=== PATIENT | male | born 1975 | race Caucasian/White ===

== ENCOUNTER → 2019-11-20 | Outpatient (CLI) | payer OTHER ==
--- NOTE | 2019-11-20 13:08 | RAD ---
PROCEDURE: TIBIA FIBULA LEFT, RIGHT FEMUR XRAY STUDY DATE: 11/20/2019 CLINICAL INDICATION / HISTORY: Reason: COMPOUND FRACTURE LEFT TIBIA FIBULA. PAIN. HX OF FX RIGHT FEMUR. PAIN. / Spl. Instructions: / History: . TECHNIQUE: Right femur 2 views. COMPARISON: None FINDINGS: The bone density appears normal. Residual deformity in the distal right femur with apex dorsal angulation at the old fracture site shows good osseous bridging. No new fracture or aggressive appearing osseous lesions. The soft tissues are unremarkable. IMPRESSION: Healed mid shaft right femoral fracture with residual deformity and no acute or aggressive appearing osseous lesions shown by x-ray. PROCEDURE: TIBIA FIBULA LEFT, RIGHT FEMUR XRAY STUDY DATE: 11/20/2019 CLINICAL INDICATION / HISTORY: Reason: COMPOUND FRACTURE LEFT TIBIA FIBULA. PAIN. HX OF FX RIGHT FEMUR. PAIN. / Spl. Instructions: / History: . TECHNIQUE: AP and lateral views of the right tibia and fibula. COMPARISON: None currently available FINDINGS: Proximal left tibial and fibular healed fractures with residual deformity are evident. There lucencies in the proximal tibial metaphysis from previous fixation hardware placement and subsequent removal. No new fractures seen. No aggressive osseous lesions identified. IMPRESSION: Residual deformity following healing of the proximal left tibial and fibular fracture. No aggressive osseous lesions or new fractures seen. Electronically signed by: Rosalia Romano MD (11/20/2019 1:05 PM) [id number]
== END | disposition home or self-care (01) ==
LOC: RAD 09:33
PROVIDERS: ATTEND Family Medicine
DX: S82.492D Other fracture of shaft of left fibula, subsequent encounter for closed fracture with routine healing (principal); X58.XXXD Exposure to other specified factors, subsequent encounter
CPT/HCPCS: 73552; 73590